=== PATIENT | female | born 1940 | race Caucasian/White ===

== ENCOUNTER 2021-11-02 09:53 | Outpatient (CLI) | payer MEDICARE, OTHER | END 2021-11-02 09:54 | disposition home or self-care (01) | LOC: RT 09:53 | PROVIDERS: ATTEND Naturopath | DX: R01.1 Cardiac murmur, unspecified (principal) | CPT/HCPCS: 93005 ==

== ENCOUNTER 2021-12-30 08:00 | Outpatient (CLI) | payer MEDICARE ==
[2021-12-30 20:05] LABS: BASOPHILS % (AUTO) 0.9 %; EOSINOPHILS # (AUTO) 0.1 10^3/uL (0.0-0.7); EOSINOPHILS % (AUTO) 1.4 %; HGB - HEMOGLOBIN 13.6 g/dL (12.0-16.0); LYMPHOCYTES # (AUTO) 0.7 10^3/uL (1.5-3.5); LYMPHOCYTES % (AUTO) 15.2 %; MEAN CORPUSCULAR HEMOGLOBIN 31.7 pg (27.0-31.0); MEAN CORPUSCULAR HGB CONC 33.2 g/dL (32.0-36.0); MEAN CORPUSCULAR VOLUME 95.6 fL (81.0-99.0); MEAN PLATELET VOLUME 11.1 fL (7.9-10.8); MONOCYTES # (AUTO) 0.4 10^3/uL (0.0-1.0); MONOCYTES % (AUTO) 8.1 %; NEUTROPHILS # (AUTO) 3.2 10^3/uL (1.5-6.6); NEUTROPHILS % (AUTO) 73.9 %; PLT - PLATELET COUNT 231 10^3/uL (130-450); RED BLOOD COUNT 4.29 10^6/uL (4.20-5.40); RED CELL DISTRIBUTION WIDTH 12.9 % (12.0-15.0); WHITE BLOOD COUNT 4.3 x10^3/uL (4.8-10.8)
[2021-12-30 20:20] LABS: ALBUMIN 4.3 g/dL (3.2-5.5); ALBUMIN/GLOBULIN RATIO 1.8 (1.0-2.2); ALKALINE PHOSPHATASE 63 IU/L (42-121); ALT ALANINE AMINOTRANSFERASE 29 IU/L (10-60); AST ASPARTATE AMINOTRANSFERASE 26 IU/L (10-42); BILIRUBIN,TOTAL 0.6 mg/dL (0.2-1.0); BUN - BLOOD UREA NITROGEN 18 mg/dL (6-20); CALCIUM 9.1 mg/dL (8.5-10.3); CARBON DIOXIDE - CO2 27 mmol/L (21-32); CHLORIDE 100 mmol/L (101-111); CREATININE 0.8 mg/dL (0.4-1.0); GFR - MDRD 69 (>89); GLUCOSE 171 mg/dL (70-100); POTASSIUM 3.4 mmol/L (3.5-5.0); SODIUM 136 mmol/L (135-145); TOTAL PROTEIN 6.7 g/dL (6.7-8.2)
[2021-12-30 20:24] LABS: CRP - C-REACTIVE PROTEIN < 1.0 mg/dL (0-1.0)
[2021-12-30 20:30] LABS: THYROID STIMULATING HORMONE 0.86 uIU/mL (0.34-5.60)
[2021-12-30 20:54] LABS: ESTIMATED AVERAGE GLUCOSE 114 mg/dL (70-100); HEMOGLOBIN A1c% 5.6 % (4.27-6.07)
== END 2021-12-30 23:59 ==
LOC: LAB.S 08:00
PROVIDERS: ATTEND Registered Nurse
DX: R20.2 Paresthesia of skin (principal)
CPT/HCPCS: 36415; 80053; 83036; 84443; 85025; 85651; 86140

== ENCOUNTER 2022-04-19 08:39 | Outpatient (CLI) | payer MEDICARE ==
[2022-04-19 15:42] LABS: T4 (THYROXINE) 3.03 ug/dL (6.09-12.23)
[2022-04-19 16:15] LABS: THYROID STIMULATING HORMONE 55.42 uIU/mL (0.34-5.60)
== END 2022-04-19 08:40 | disposition home or self-care (01) ==
LOC: LAB.S 08:39
PROVIDERS: ATTEND Registered Nurse
DX: E03.9 Hypothyroidism, unspecified (principal); Z86.14 Personal history of Methicillin resistant Staphylococcus aureus infection
CPT/HCPCS: 36415; 84436; 84443; 84480; 87640

== ENCOUNTER 2022-08-17 16:17 | Outpatient (CLI) | payer MEDICARE ==
--- NOTE | 2022-08-18 21:00 | XRAY Report ---
PROCEDURE: Knee 2 View LT INDICATIONS: PAIN IN LEFT KNEE TECHNIQUE: 2 views of the left knee(s) were acquired. COMPARISON: None. FINDINGS: Bones: No fractures or dislocations. Mild to moderate tricompartmental osteoarthritis is seen most notably in medial femoral tibial compartment with joint space narrowing, subchondral sclerosis and sm all marginal osteophyte formation. No suspicious bony lesions. Soft tissues: No joint effusion. No suspicious soft tissue calcifications. IMPRESSION: No acute left knee fracture or dislocation. 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 Reviewed by: Antelmo Boss MD on 08/18/2022 8:58 PM PST Approved by: Antelmo Boss MD on 08/18/2022 8:58 PM PST Station ID: [id number]
== END 2022-08-17 16:18 | disposition home or self-care (01) ==
LOC: DI 16:17
PROVIDERS: ATTEND Registered Nurse
DX: M17.12 Unilateral primary osteoarthritis, left knee (principal); M25.462 Effusion, left knee

== ENCOUNTER 2023-05-16 07:52 | Outpatient (CLI) | payer MEDICARE ==
[2023-05-16 14:30] LABS: BASOPHILS % (AUTO) 0.9 %; EOSINOPHILS # (AUTO) 0.3 10^3/uL (0.0-0.7); EOSINOPHILS % (AUTO) 5.5 %; HCT - HEMATOCRIT 42.4 % (37.0-47.0); HGB - HEMOGLOBIN 13.8 g/dL (12.0-16.0); LYMPHOCYTES # (AUTO) 0.7 10^3/uL (1.5-3.5); LYMPHOCYTES % (AUTO) 15.6 %; MEAN CORPUSCULAR HEMOGLOBIN 31.7 pg (27.0-31.0); MEAN CORPUSCULAR HGB CONC 32.5 g/dL (32.0-36.0); MEAN CORPUSCULAR VOLUME 97.5 fL (81.0-99.0); MEAN PLATELET VOLUME 10.6 fL (7.9-10.8); MONOCYTES # (AUTO) 0.4 10^3/uL (0.0-1.0); MONOCYTES % (AUTO) 8.1 %; NEUTROPHILS # (AUTO) 3.3 10^3/uL (1.5-6.6); NEUTROPHILS % (AUTO) 69.7 %; PLT - PLATELET COUNT 221 10^3/uL (130-450); RED BLOOD COUNT 4.35 10^6/uL (4.20-5.40); RED CELL DISTRIBUTION WIDTH 13.2 % (12.0-15.0); WHITE BLOOD COUNT 4.7 x10^3/uL (4.8-10.8)
[2023-05-16 15:37] LABS: ALBUMIN 4.3 g/dL (3.2-5.5); ALBUMIN/GLOBULIN RATIO 1.7 (1.0-2.2); ALKALINE PHOSPHATASE 86 IU/L (42-121); ALT ALANINE AMINOTRANSFERASE 11 IU/L (10-60); AST ASPARTATE AMINOTRANSFERASE 16 IU/L (10-42); BILIRUBIN,TOTAL 0.6 mg/dL (0.2-1.0); BUN - BLOOD UREA NITROGEN 13 mg/dL (6-20); CALCIUM 9.5 mg/dL (8.5-10.3); CARBON DIOXIDE - CO2 31 mmol/L (21-32); CHLORIDE 102 mmol/L (101-111); CHOLESTEROL 308 mg/dL; CREATININE 0.8 mg/dL (0.6-1.3); GFR - MDRD 69 (>89); GLUCOSE 97 mg/dL (74-104); POTASSIUM 4.1 mmol/L (3.5-4.5); SODIUM 139 mmol/L (135-145); TOTAL PROTEIN 6.9 g/dL (6.4-8.9); TRIGLYCERIDES 114 mg/dL (48-352); VLDL CHOLESTEROL 23 mg/dL
[2023-05-16 16:10] LABS: CHOL/HDL RATIO 3.2 (<4.4); HDL CHOLESTEROL 97 mg/dL; LDL CHOLESTEROL,CALCULATED 188 mg/dL; LDL/HDL RATIO 1.9 (<4.4)
== END 2023-05-16 07:53 | disposition home or self-care (01) ==
LOC: LAB.S 07:52
PROVIDERS: ATTEND Registered Nurse
DX: Z79.899 Other long term (current) drug therapy (principal); Z13.220 Encounter for screening for lipoid disorders
CPT/HCPCS: 36415; 80053; 80061; 83721; 85025

== ENCOUNTER 2023-05-16 09:35 | Outpatient (CLI) | payer MEDICARE ==
--- NOTE | 2023-05-16 18:07 | XRAY Report ---
PROCEDURE: Lumbar Spine 2 View INDICATIONS: LUMBAR RADICULOPATHY TECHNIQUE: 3 views of the lumbar spine were acquired. COMPARISON: None. FINDINGS: Bones: 5 uem-ocm-olyhtvb vertebrae are present. 9 mm anterolisthesis of L4 on L5. Lower lumbar facet arthropathy. Probable foraminal narrowing at L5-S1. No vertebral body compression fractures. No teddy picious bony lesions. Soft tissues: Overlying bowel gas pattern is normal. No suspicious soft tissue calcifications. IMPRESSION: Lumbar degenerative change with lower lumbar facet arthropathy and possible foraminal na rrowing at L5-S1. Reviewed by: Jesus Welch MD on 05/16/2023 6:06 PM PDT Approved by: Jesus Welch MD on 05/16/2023 6:06 PM PDT Station ID: [id number]
== END 2023-05-16 23:59 | disposition home or self-care (01) ==
LOC: DI.S 09:35
PROVIDERS: ATTEND Physician Assistant
DX: M47.26 Other spondylosis with radiculopathy, lumbar region (principal); Z13.220 Encounter for screening for lipoid disorders; Z79.899 Other long term (current) drug therapy
CPT/HCPCS: 36415; 80053; 80061; 83721; 85025

== ENCOUNTER 2023-06-10 09:05 | Outpatient (CLI) | payer MEDICARE ==
[2023-06-10 09:25] LABS: BASOPHILS % (AUTO) 0.6 %; EOSINOPHILS # (AUTO) 0.1 10^3/uL (0.0-0.7); EOSINOPHILS % (AUTO) 2.4 %; HCT - HEMATOCRIT 44.4 % (37.0-47.0); LYMPHOCYTES # (AUTO) 0.6 10^3/uL (1.5-3.5); LYMPHOCYTES % (AUTO) 13.1 %; MEAN CORPUSCULAR HEMOGLOBIN 31.8 pg (27.0-31.0); MEAN CORPUSCULAR HGB CONC 33.8 g/dL (32.0-36.0); MEAN CORPUSCULAR VOLUME 94.3 fL (81.0-99.0); MEAN PLATELET VOLUME 10.4 fL (7.9-10.8); MONOCYTES # (AUTO) 0.3 10^3/uL (0.0-1.0); MONOCYTES % (AUTO) 6.7 %; NEUTROPHILS # (AUTO) 3.6 10^3/uL (1.5-6.6); PLT - PLATELET COUNT 236 10^3/uL (130-450); RED BLOOD COUNT 4.71 10^6/uL (4.20-5.40); RED CELL DISTRIBUTION WIDTH 12.8 % (12.0-15.0); WHITE BLOOD COUNT 4.6 x10^3/uL (4.8-10.8)
--- NOTE | 2023-06-10 10:11 | XRAY Report ---
PROCEDURE: Chest 2 View X-Ray INDICATIONS: PERSISTENT COUGH AFTER VIRAL RESP INFECTION TECHNIQUE: 2 views of the chest were acquired. COMPARISON: None. FINDINGS: Surgical changes and devices: None. Lungs and pleura: No pleural effusions or pneumothorax. Mildly prominent interstitial markings can b e seen with viral or atypical infection. Mediastinum: Mediastinal contours appear normal. Heart size is normal. Bones and chest wall: No suspicious bony lesions. Overlying soft tissues appear unremarkable. IMPRESSION: Mildly prominent interstitial markings which can be seen with a viral or atypical infection. Reviewed by: Wallace Ritchie MD on 06/10/2023 10:10 AM PDT Approved by: Wallace Ritchie MD on 06/10/2023 10:10 AM PDT Station ID: [id number]
[2023-06-10 11:17] LABS: THYROID STIMULATING HORMONE 37.76 uIU/mL (0.34-5.60)
[2023-06-10 16:18] LABS: ALBUMIN 4.4 g/dL (3.2-5.5); ALBUMIN/GLOBULIN RATIO 1.8 (1.0-2.2); ALKALINE PHOSPHATASE 76 IU/L (42-121); ALT ALANINE AMINOTRANSFERASE 13 IU/L (10-60); AST ASPARTATE AMINOTRANSFERASE 18 IU/L (10-42); BILIRUBIN,TOTAL 0.6 mg/dL (0.2-1.0); BUN - BLOOD UREA NITROGEN 16 mg/dL (6-20); CALCIUM 9.8 mg/dL (8.5-10.3); CARBON DIOXIDE - CO2 28 mmol/L (21-32); CHLORIDE 103 mmol/L (101-111); CHOL/HDL RATIO 3.2 (<4.4); CHOLESTEROL 290 mg/dL; CREATININE 0.8 mg/dL (0.6-1.3); GFR - MDRD 68 (>89); GLUCOSE 100 mg/dL (74-104); HDL CHOLESTEROL 90 mg/dL; LDL CHOLESTEROL,CALCULATED 179 mg/dL; SODIUM 140 mmol/L (135-145); TOTAL PROTEIN 6.9 g/dL (6.4-8.9); TRIGLYCERIDES 106 mg/dL (48-352); VLDL CHOLESTEROL 21 mg/dL
== END 2023-06-10 09:06 | disposition home or self-care (01) ==
LOC: DI 09:05
PROVIDERS: ATTEND Physician Assistant Medical
DX: R05.3 Chronic cough (principal); R53.83 Other fatigue
CPT/HCPCS: 36415; 80053; 80061; 83721; 84436; 84439; 84443; 84480; 84481; 85025

== ENCOUNTER 2023-10-11 13:53 | Outpatient (CLI) | payer MEDICARE ==
--- NOTE | 2023-10-11 16:03 | XRAY Report ---
PROCEDURE: Chest 2V INDICATIONS: DECREASED APPETITE, PERSISTENT COUGH TECHNIQUE: 2 views of the chest were acquired. COMPARISON: Chest radiographs 06/10/2023 FINDINGS: Surgical changes and devices: None. Lungs and pleura: No pleural effusions or pneumothorax. Mild bilateral interstitial prominence may b e chronic versus secondary to an atypical or viral infection or mild edema. Mediastinum: Mediastinal contours appear normal. Heart size is normal. Bones and chest wall: No suspicious bony lesions. Overlying soft tissues appear unremarkable. IMPRESSION: Bilateral interstitial prominence may be related to chronic fibrosis versus an atypical or viral pneu monia or mild edema. Reviewed by: Elie Wilson MD on 10/11/2023 4:02 PM PST Approved by: Elie Wilson MD on 10/11/2023 4:02 PM PST Station ID: [id number]
[2023-10-11 20:25] LABS: BASOPHILS # (AUTO) 0.1 10^3/uL (0.0-0.1); EOSINOPHILS # (AUTO) 0.2 10^3/uL (0.0-0.7); HGB - HEMOGLOBIN 13.8 g/dL (12.0-16.0); LYMPHOCYTES # (AUTO) 0.8 10^3/uL (1.5-3.5); LYMPHOCYTES % (AUTO) 9.2 %; MEAN CORPUSCULAR HEMOGLOBIN 31.1 pg (27.0-31.0); MEAN CORPUSCULAR HGB CONC 32.9 g/dL (32.0-36.0); MEAN CORPUSCULAR VOLUME 94.6 fL (81.0-99.0); MEAN PLATELET VOLUME 10.3 fL (7.9-10.8); NEUTROPHILS # (AUTO) 6.1 10^3/uL (1.5-6.6); NEUTROPHILS % (AUTO) 75.2 %; PLT - PLATELET COUNT 300 10^3/uL (130-450); RED BLOOD COUNT 4.44 10^6/uL (4.20-5.40); RED CELL DISTRIBUTION WIDTH 11.9 % (12.0-15.0); WHITE BLOOD COUNT 8.1 x10^3/uL (4.8-10.8)
[2023-10-11 20:48] LABS: ALBUMIN/GLOBULIN RATIO 1.3 (1.0-2.2); BILIRUBIN,TOTAL 0.4 mg/dL (0.2-1.0); CALCIUM 9.3 mg/dL (8.5-10.3); CREATININE 0.7 mg/dL (0.6-1.3); POTASSIUM 3.8 mmol/L (3.5-4.5); TOTAL PROTEIN 7.2 g/dL (6.4-8.9)
[2023-10-11 21:01] LABS: THYROID STIMULATING HORMONE 12.1 uIU/mL (0.34-5.60)
== END 2023-10-11 13:54 | disposition home or self-care (01) ==
LOC: DI.S 13:53
PROVIDERS: ATTEND Registered Nurse
DX: R63.0 Anorexia (principal); R05.3 Chronic cough; R53.83 Other fatigue; R91.8 Other nonspecific abnormal finding of lung field
CPT/HCPCS: 36415; 80053; 84439; 84443; 85025

== ENCOUNTER 2023-12-30 11:14 | Outpatient (CLI) | payer MEDICARE | END 2023-12-30 23:59 | disposition critical access hospital (66) | LOC: EMS 11:14 | DX: H53.8 Other visual disturbances (principal) | CPT/HCPCS: A0425; A0429 ==

== ENCOUNTER 2023-12-30 11:46 | Emergency (ER) | payer MEDICARE ==
[2023-12-30 12:21] LABS: BASOPHILS % (AUTO) 0.7 %; EOSINOPHILS # (AUTO) 0.2 10^3/uL (0.0-0.7); EOSINOPHILS % (AUTO) 4.2 %; HCT - HEMATOCRIT 39.3 % (37.0-47.0); HGB - HEMOGLOBIN 13.2 g/dL (12.0-16.0); LYMPHOCYTES # (AUTO) 0.7 10^3/uL (1.5-3.5); LYMPHOCYTES % (AUTO) 16.4 %; MEAN CORPUSCULAR HGB CONC 33.6 g/dL (32.0-36.0); MEAN CORPUSCULAR VOLUME 95.2 fL (81.0-99.0); MEAN PLATELET VOLUME 10.5 fL (7.9-10.8); MONOCYTES # (AUTO) 0.3 10^3/uL (0.0-1.0); MONOCYTES % (AUTO) 5.8 %; NEUTROPHILS # (AUTO) 3.1 10^3/uL (1.5-6.6); NEUTROPHILS % (AUTO) 72.4 %; PLT - PLATELET COUNT 195 10^3/uL (130-450); RED BLOOD COUNT 4.13 10^6/uL (4.20-5.40); RED CELL DISTRIBUTION WIDTH 13.1 % (12.0-15.0); WHITE BLOOD COUNT 4.3 x10^3/uL (4.8-10.8)
[2023-12-30 12:35] LABS: ALBUMIN/GLOBULIN RATIO 1.7 (1.0-2.2); BILIRUBIN,TOTAL 0.4 mg/dL (0.2-1.0); CALCIUM 9.2 mg/dL (8.5-10.3); CREATININE 0.8 mg/dL (0.6-1.3); TOTAL PROTEIN 6.4 g/dL (6.4-8.9)
[2023-12-30] MEDS ORDERED: iohexoL-300 100 ML VIAL ONE (12:37)
--- NOTE | 2023-12-30 12:47 | CT Report ---
PROCEDURE: Head W/O Stroke Protocol INDICATIONS: R eye vision deficits TECHNIQUE: Noncontrast 4.5 mm thick angled axial sections acquired from the foramen magnum to the vertex, with c oronal reformats. For radiation dose reduction, the following was used: automated exposure control, adjustment of mA and/or kV according to patient size. COMPARISON: None. FINDINGS: Image quality: Excellent. CSF spaces: Basal cisterns are patent. No extra-axial fluid collections. Ventricles are normal in size and shape. Brain: No midline shift. No intracranial masses or hemorrhage. Sawyer-white matter interface is norm al. Leukoaraiosis, commonly caused by chronic small vessel ischemic disease. Age-related volume loss . Skull and face: Calvarium and visualized facial bones are intact, without suspicious lesions. Sinuses: Visualized sinuses and mastoids are clear. IMPRESSION: No acute intracranial pathology Above discussed with Yehuda Capellan MD at the 12:46 PM on 12/30/2023. This study fulfills neurological imaging criteria for inclusion or exclusion of acute stroke therapie s based on available published neurological imaging guidelines. Reviewed by: Ashwin Briggs MD on 12/30/2023 12:46 PM PDT Approved by: Ashwin Briggs MD on 12/30/2023 12:46 PM PDT Station ID: [id number]
--- NOTE | 2023-12-30 12:49 | CT Report ---
PROCEDURE: Angio Head/Neck INDICATIONS: R eye vision deficits TECHNIQUE: After the administration of intravenous contrast, 1 mm thick sections acquired from the aortic arch t hrough the [place]. 3-dimensional ahniloy-fpvdtkeve-vvfbkukogn (MIP) and/or volume renderin g reformats were acquired of the central intracranial vasculature and neck separately. For radiation dose reduction, the following was used: automated exposure control, adjustment of mA and/or kV acco rding to patient size. CONTRAST: 80ml omni 300 COMPARISON: None. FINDINGS: Image quality: Diagnostic. HEAD CT: CSF Spaces: Basal cisterns are patent. No extra-axial fluid collections. Ventricles are normal in size and shape. Brain: No significant abnormality is seen for scanning technique. Skull and face: Calvarium and visualized facial bones appear intact, without suspicious lesions. Sinuses: Visualized sinuses and mastoids are clear. HEAD CT ANGIOGRAPHY: Anterior circulation: Intracranial internal carotid arteries are normal in size and flow. The flow within the paired anterior cerebral arteries is normal and symmetric. The flow within the middle cer ebral arteries is normal and symmetric. The anterior communicating artery is seen. No aneurysms are seen. Posterior circulation: Visualized portions of the vertebral arteries demonstrate normal caliber, and join to form a normal appearing basilar artery. Flow within the posterior cerebral arteries is norm al and symmetric. No aneurysms are seen. NECK CT ANGIOGRAPHY: Carotid system: The great vessels demonstrate a conventional anatomy as they arise from the aortic a rch. The origins of the common carotid arteries appear patent. The common carotid arteries demonstr ate normal caliber and courses. The bifurcation regions are both widely patent. The internal caroti d arteries demonstrate normal calibers and courses. Posterior circulation: The origins of the vertebral arteries both appear widely patent. The more gonzalez perior extracranial portions of both vertebral arteries also demonstrate normal courses and calibers. They join to form a normal appearing basilar artery. Soft tissues: Visualized neck soft tissues demonstrate no suspicious abnormalities. Bones: No suspicious bony lesions. Visualized cervical spine appears normally aligned. IMPRESSION: No significant intracranial arterial abnormality is seen. No significant abnormality is seen within the arteries of the neck. The estimate of stenosis included in the report of the imaging study was calculated using the NASCET method Reviewed by: Ashwin Briggs MD on 12/30/2023 12:48 PM PDT Approved by: Ashwin Briggs MD on 12/30/2023 12:48 PM PDT Station ID: [id number]
--- NOTE | 2023-12-30 12:59 | ED Physician Documentation ---
PD HPI FOCAL NEURO - Stated complaint Stated Complaint: BLURRY VISION - Chief complaint Chief Complaint: Neuro - History obtained from History obtained from: Patient - Additional information Additional information: Patient is an 83-year-old female with a history of hypothyroidism presenting for evaluation of visual disturbances starting around 8:00 this morning. Patient states that it started in both eyes where she reports having a cloudy film over both eyes that almost look like a snowflake or a snowflake pattern. She states that the left eye got better but she continues to have vision changes on the right. She states that at times she still sees the cloudy film and that at other times it is Areas of black in color like an abstract painting. She states that she is able to see past the film. She has no headache. No trouble with speech or swallow. She went to the walk-in clinic and then was sent by EMS to the emergency department. Does not take a blood thinner. No history of strok es. Denies history of migraines. Denies any pain to the eye.Patient denies loss of vision. Denies flashing lights or floaters or curtain like sensation of her visual field. Review of Systems Constitutional: denies: Fever Eyes: denies: Discharge Cardiac: denies: Chest pain / pressure Respiratory: denies: Dyspnea GI: denies: Abdominal Pain, Vomiting : denies: Dysuria PD PAST MEDICAL HISTORY - Past Medical History Cardiovascular: None Respiratory: None Neuro: None Endocrine/Autoimmune: HyPOthyroidism GI: None CLOTHING MAN: None : None HEENT: None Psych: None Musculoskeletal: None Derm: None - Past Surgical History Past Surgical History: No - Present Medications Home Medications: Ambulatory Orders Medication Instructions Recorded Confirmed Levothyroxine [Synthroid] 88 mcg PO DAILY 12/30/23 12/30/23 - Allergies Allergies/Adverse Reactions: Allergies Allergy/AdvReac Type Severity Reaction Status Date / Time No Known Drug Allergies Allergy Verified 12/30/23 12:07 - Social History Does the pt smoke?: No Smoking Status: Never smoker Does the pt drink ETOH?: No Does the pt have substance abuse?: No - Immunizations Immunizations are current?: Yes - POLST Patient has POLST: No PD ED PE NORMAL - General General: Alert and oriented X 3, No acute distress, Well developed/nourished - HEENT HEENT: Atraumatic, PERRL, EOMI, Moist mucous membranes, Pharynx benign, Other (No tenderness over temporal artery) - Neck Neck: Supple, no meningeal sign - Cardiac Cardiac: RRR, Strong equal pulses - Respiratory Respiratory: No respiratory distress, Clear bilaterally - Abdomen Abdomen: Normal bowel sounds, Soft, Non tender, Non distended - Derm Derm: Warm and dry - Extremities Extremities: No edema - Neuro Neuro: Alert and oriented X 3, gardener 2-12 intact, No motor deficit, No sensory deficit, Normal speech Eye Opening: Spontaneous Motor: Obeys Commands Verbal: Oriented GCS Score: 15 PD ED PE EXPANDED - Eyes Eyes: Visual acuity - see nn, PERRL, EOMI, Normal eyelids, Nl conjunctiva/sclera, Normal corneas, Other (IOP R eye 15). No: Fluorescein uptake NIHSS - Level of Consciousness Level of consciousness: (0) Alert, Keenly responsive LOC Questions: (0) Answers both Q's correct LOC Commands: (0) Performs both correctly - Gaze Best Gaze: (0) Normal - Visual Visual: (0) No loss - Facial Palsy Facial Palsy: (0) Normal, symmetrical movement - Motor Arms (both separate) Motor Arm (right): (0) No drift Motor Arm (left): (0) No drift - Motor Legs (both separate) Motor Leg (right): (0) No drift Motor Leg (left): (0) No drift - Limb Ataxia Limb Ataxia: (0) Absent - Sensory Sensory: (0) Normal - Best Language Best Language: (0) No aphasia - Dysarthria Dysarthria: (0) Normal - Extinction and Inattention (formally neg Extinction and inattention: (0) No abnormality - Total Score/Results Total Score/Result: 0 Results - Vitals Vitals: Vital Signs - 24 hr 12/30/23 12/30/23 12/30/23 11:59 12:37 13:07 Temperature 36.1 C L Heart Rate 80 65 65 Respiratory 15 16 16 Rate Blood Pressure 169/83 H 181/74 H 160/77 H O2 Saturation 100 100 100 12/30/23 12/30/23 12/30/23 14:00 15:00 16:00 Temperature Heart Rate 64 68 77 Respiratory 16 16 16 Rate Blood Pressure 166/87 H 168/84 H 132/90 H O2 Saturation 97 98 100 Oxygen O2 Source Room air - EKG (time done) 1228 EKG releavant findings:: EKG personally interpreted by author of this note. Relevant findings are: Rate 61, normal sinus rhythm, no STEM, QTc 443 - Labs Labs: Laboratory Tests 12/30/23 12/30/23 12:11 12:11 WBC 4.3 L RBC 4.13 L Hgb 13.2 Hct 39.3 MCV 95.2 MCH 32.0 H MCHC 33.6 RDW 13.1 Plt Count 195 MPV 10.5 Neut # (Auto) 3.1 Lymph # (Auto) 0.7 L Emmons # (Auto) 0.3 Eos # (Auto) 0.2 Baso # (Auto) 0.0 Absolute Nucleated RBC 0.00 Nucleated RBC % 0.0 Sodium 139 Potassium 4.0 Chloride 105 Carbon Dioxide 29 Anion Gap 5.0 L BUN 15 Creatinine 0.8 Estimated GFR (MDRD) 68 L Glucose 101 Calcium 9.2 Total Bilirubin 0.4 AST 13 ALT 9 L Alkaline Phosphatase 79 Total Protein 6.4 Albumin 4.0 Globulin 2.4 Albumin/Globulin Ratio 1.7 Lipase 27 PD Medical Decision Making - ED course Complexity details: reviewed results, re-evaluated patient, d/w patient ED course: Pt is an 83 yo F with hypothyroidism presenting for evaluation of vision changes to R eye. No flashes/floaters, headaches, eye pain/irritation, curtain, total vision loss of visual field deficit. NIH 0. Seen by telestroke who feels symptoms are likely ocular migraine and not a stroke. CT head negative for bleed and no LVO on CT Angio Head/neck. No h/o HTN, HLD, DM. EKG NSR. CBC, chemistries reviewed. Normal IOP on exam, no signs of foreign body, cloudy cornea. No pain. No tenderness over temporal artery. Pt received migraine medications including reglan, benadryl, acetaminophen. Eager for discharge and no changes in symptoms here and pt counseled on close follow up with Dr. Patel (optho who she sees for eye exams) and PCP. Advised to return with worsening symptoms. 1325 - D/W Dr. 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 Departure - Departure Disposition: 01 Home, Self Care Clinical Impression: Vision changes Condition: Stable Instructions: ED Blurred Vision Follow-Up: Jhony Patel MD [Provider Admit Priv/Credential] - Within 3 Days Vane Wade ARNP [Credentialed Staff Provider] - Within 3 Days Comments: You were evaluated for vision changes to your right eye. You were seen by a telemetry neurologist who does not feel your symptoms are from a stroke. His most likely explanation is that this is something called an ocular migraine. I would recommend close follow-up with your primary care doctor as well as with your historiography teacher next week. If you develop any worsening symptoms such as pain or further changes to your vision or any other new changes such as weakness then please return to the emergency department. Forms: PCP List Discharge Date/Time: 12/30/23 16:59
[2023-12-30] MEDS: PROPARACAINE 0.5% OPHTH DROPS 15 ML RIGHTEYE STA (13:44)
[2023-12-30] MEDS: ACETAMINOPHEN 325 MG TABLET PO STA ×2 (14:24→16:01)
[2023-12-30] MEDS: diphenhydrAMINE INJ 50 MG/ML VIAL IVP STA ×2 (14:24→16:02)
[2023-12-30] MEDS: METOCLOPRAMIDE 10 MG/2 ML VIAL IVP STA ×2 (14:24→16:02)
[2023-12-30 16:16] VITALS: BP 132/90; O2SAT 100
[2023-12-30] MEDS: iohexoL-300 100 ML VIAL IVP ONE (16:16)
== END 2023-12-30 16:59 | disposition home or self-care (01) ==
LOC: EDUNIT# → ED 11:46
DX: H53.8 Other visual disturbances (principal)
CPT/HCPCS: 36415; 70450; 70496; 70498; 80053; 83690; 85025; 93005; 96374; 99284; A9270; J1200; J2765; J3490; Q9967

== ENCOUNTER 2024-01-19 10:39 | Outpatient (CLI) | payer MEDICARE ==
[2024-01-19 14:30] LABS: BASOPHILS % (AUTO) 0.7 %; EOSINOPHILS # (AUTO) 0.3 10^3/uL (0.0-0.7); EOSINOPHILS % (AUTO) 6.5 %; HCT - HEMATOCRIT 43.1 % (37.0-47.0); HGB - HEMOGLOBIN 14.1 g/dL (12.0-16.0); LYMPHOCYTES # (AUTO) 0.7 10^3/uL (1.5-3.5); LYMPHOCYTES % (AUTO) 17.1 %; MEAN CORPUSCULAR HEMOGLOBIN 31.8 pg (27.0-31.0); MEAN CORPUSCULAR HGB CONC 32.7 g/dL (32.0-36.0); MEAN CORPUSCULAR VOLUME 97.1 fL (81.0-99.0); MONOCYTES # (AUTO) 0.3 10^3/uL (0.0-1.0); MONOCYTES % (AUTO) 7.5 %; NEUTROPHILS # (AUTO) 2.8 10^3/uL (1.5-6.6); NEUTROPHILS % (AUTO) 68.2 %; PLT - PLATELET COUNT 217 10^3/uL (130-450); RED BLOOD COUNT 4.44 10^6/uL (4.20-5.40); RED CELL DISTRIBUTION WIDTH 13.1 % (12.0-15.0); WHITE BLOOD COUNT 4.2 x10^3/uL (4.8-10.8)
[2024-01-19 15:00] LABS: ALBUMIN 4.4 g/dL (3.2-5.5); ALBUMIN/GLOBULIN RATIO 1.6 (1.0-2.2); BILIRUBIN,TOTAL 0.6 mg/dL (0.2-1.0); CREATININE 0.7 mg/dL (0.6-1.3); POTASSIUM 3.9 mmol/L (3.5-4.5); TOTAL PROTEIN 7.1 g/dL (6.4-8.9)
== END 2024-01-19 10:40 | disposition home or self-care (01) ==
LOC: LAB.S 10:39
PROVIDERS: ATTEND Physician Assistant Medical
DX: H54.40 Blindness, one eye, unspecified eye (principal)
CPT/HCPCS: 36415; 80053; 85025

== ENCOUNTER 2024-01-30 09:13 | Outpatient (CLI) | payer MEDICARE ==
--- NOTE | 2024-01-30 12:52 | MRI Report ---
PROCEDURE: Brain WO INDICATIONS: UNILATERAL SEVERE VISUAL LOSS TECHNIQUE: Noncontrast axial T1 spin echo, axial T2 fast spin echo, sagittal and axial FLAIR, coronal T2 fast sp in echo, axial gradient echo, axial diffusion and ADC through the brain. COMPARISON: CT dated 12/30/2023 FINDINGS: Image quality: Excellent. CSF Spaces: Basal cisterns are patent. No extra-axial fluid collections. Ventricles are normal in size and shape. Brain: No intracranial masses or hemorrhage. Sawyer/white matter interface is normal. Mild volume lo ss. Mild degree of patchy high FLAIR signal within the periventricular and subcortical white matter. Brainstem appears normal. Diffusion-weighted images demonstrate no acute ischemic insult. No chroni c ischemic insults. Normal intravascular flow voids are present. Skull and face: Calvarium has normal marrow signal. Orbits appear normal. Sinuses: Sinuses and mastoids are clear. IMPRESSION: 1. No acute process. 2. Mild volume loss and small vessel ischemic disease. Reviewed by: Butch Parrish MD on 01/30/2024 12:50 PM PDT Approved by: Butch Parrish MD on 01/30/2024 12:50 PM PDT Station ID: [id number]
== END 2024-01-30 09:14 | disposition home or self-care (01) ==
LOC: DI 09:13
PROVIDERS: ATTEND Physician Assistant Medical
DX: H54.40 Blindness, one eye, unspecified eye (principal); G31.89 Other specified degenerative diseases of nervous system; I67.82 Cerebral ischemia

== ENCOUNTER 2024-02-08 14:06 | Outpatient (CLI) | payer MEDICARE ==
[2024-02-08 20:45] LABS: THYROID STIMULATING HORMONE 3.37 uIU/mL (0.34-5.60)
== END 2024-02-08 14:07 | disposition home or self-care (01) ==
LOC: LAB.S 14:06
PROVIDERS: ATTEND Physician Assistant Medical
DX: R53.83 Other fatigue (principal); R53.81 Other malaise
CPT/HCPCS: 36415; 82607; 84443

== ENCOUNTER 2024-04-06 08:19 | Outpatient (CLI) | payer MEDICARE ==
[2024-04-06 15:34] LABS: BUN - BLOOD UREA NITROGEN 15 mg/dL (6-20); CALCIUM 9.7 mg/dL (8.5-10.3); CARBON DIOXIDE - CO2 31 mmol/L (21-32); CHLORIDE 103 mmol/L (101-111); CHOL/HDL RATIO 2.9 (<4.4); CHOLESTEROL 269 mg/dL; CREATININE 0.7 mg/dL (0.6-1.3); GFR - MDRD 80 (>89); GLUCOSE 94 mg/dL (74-104); HDL CHOLESTEROL 94 mg/dL; LDL CHOLESTEROL,CALCULATED 156 mg/dL; LDL/HDL RATIO 1.7 (<4.4); SODIUM 139 mmol/L (135-145); TRIGLYCERIDES 93 mg/dL (48-352); VLDL CHOLESTEROL 19 mg/dL
[2024-04-06 20:21] LABS: ESTIMATED AVERAGE GLUCOSE 111 mg/dL (70-100); HEMOGLOBIN A1c% 5.5 % (4.27-6.07)
== END 2024-04-06 08:20 | disposition home or self-care (01) ==
LOC: LAB.S 08:19
PROVIDERS: ATTEND Internal Medicine
DX: H34.8112 Central retinal vein occlusion, right eye, stable (principal); E78.5 Hyperlipidemia, unspecified
CPT/HCPCS: 36415; 80048; 80061; 83036; 83721

== ENCOUNTER 2024-05-14 16:21 | Outpatient (CLI) | payer MEDICARE | END 2024-05-14 23:59 | disposition EMS.NT | LOC: EMS 16:21 | DX: Z03.89 Encounter for observation for other suspected diseases and conditions ruled out (principal) ==